=== PATIENT | male | born 1970 | race Caucasian/White ===

== ENCOUNTER → 2016-11-05 | Outpatient (CLI) | payer OTHER ==
[~2016-11-05] MED LIST: IOPAMIDOL (ISOVUE 370) 100 ML BTL IV ONE
== END ==
LOC: CIMAGING 09:39
PROVIDERS: ATTEND Internal Medicine Interventional Cardiology
DX: I77.819 Aortic ectasia, unspecified site (principal); Z95.4 Presence of other heart-valve replacement
CPT/HCPCS: 71275-PO; Q9967